=== PATIENT | female | born 1995 | race Caucasian/White ===

== ENCOUNTER 2021-12-31 13:21 | Observation (INO) | payer OTHER ==
[~2021-12-31] VITALS: Ht 160 cm; Wt 62.1 kg
[2021-12-31] MEDS ORDERED: PNV1TABL76 MT (15:08)
== END 2021-12-31 15:33 | disposition home or self-care (01) ==
LOC: 8 EST LDRP 13:21
PROVIDERS: ADMIT Obstetrics & Gynecology; ATTEND Obstetrics & Gynecology
DX: O62.9 Abnormality of forces of labor, unspecified (principal); O99.891 Other specified diseases and conditions complicating pregnancy; M54.9 Dorsalgia, unspecified; O26.893 Other specified pregnancy related conditions, third trimester; K59.09 Other constipation; Z3A.30 30 weeks gestation of pregnancy
CPT/HCPCS: 59025; 99281; G0378

== ENCOUNTER 2022-01-07 13:07 | Observation (INO) | payer OTHER ==
[~2022-01-07] VITALS: Ht 160 cm; Wt 62.0 kg
[~2022-01-07 13:07] MED LIST: PNV1TABL76 MT
[2022-01-07] MEDS ORDERED: ACETAMINOPHEN 325MG TABLET PO STA (14:25)
[2022-01-07 14:44] LABS: HEMATOCRIT. 33.2 % (36.0-48.0); HEMOGLOBIN. 11.7 g/dL (12.0-16.0); MEAN CORPUSCULAR HEMOGLOBIN 34.5 pg (28.0-32.0); MEAN CORPUSCULAR VOLUME 97.9 fL (81.0-99.0); MEAN PLATELET VOLUME 8.3 fl (7.4-10.4); PLATELET 207 x1000/uL (130-400); RED CELL DISTRIBUTION WIDTH 13.2 % (11.6-14.6)
[2022-01-07 14:54] LABS: CHLORIDE 105 mEq/L (98-107)
[2022-01-07 15:06] LABS: CLARITY URINE CLOUDY (CLEAR); COLOR URINE YELLOW (YELLOW); KETONES URINE NEGATIVE (NEGATIVE); LEUKOCYTE ESTERASE URINE NEGATIVE (NEGATIVE); NITRITE URINE NEGATIVE (NEGATIVE); OCCULT BLOOD URINE NEGATIVE (NEGATIVE); PROTEIN URINE NEGATIVE (NEGATIVE); SPECIFIC GRAVITY URINE 1.013 (1.005-1.030); UROBILINOGEN URINE 0.2 E.U./dL (0.2-1.0)
[2022-01-07 15:18] LABS: B-HCG QUANTITATIVE 23079 mIU/mL (<3)
[2022-01-07 16:28] LABS: PLATELET ESTIMATE NORMAL
[2022-01-07 17:21] VITALS: BP 114/62
== END 2022-01-07 19:25 | disposition home or self-care (01) ==
LOC: ER 13:07 → EDSTATUS 18:10 → 8 EST A/PP 18:11
PROVIDERS: ADMIT Obstetrics & Gynecology; ATTEND Obstetrics & Gynecology
DX: O9A.213 Injury, poisoning and certain other consequences of external causes complicating pregnancy, third trimester (principal); O99.891 Other specified diseases and conditions complicating pregnancy; M54.59 Other low back pain; O26.893 Other specified pregnancy related conditions, third trimester; R10.9 Unspecified abdominal pain; R10.2 Pelvic and perineal pain; Z3A.31 31 weeks gestation of pregnancy; V89.2XXA Person injured in unspecified motor-vehicle accident, traffic, initial encounter; Y92.410 Unspecified street and highway as the place of occurrence of the external cause; Y93.89 Activity, other specified; Y99.8 Other external cause status
CPT/HCPCS: 36415; 72146; 72148; 76705; 76805; 80053; 81003; 83690; 84702; 85025; G0378; 59025; 99281; 99285; G0379